=== PATIENT | male | born 1950 | race Hispanic/Latino ===

== ENCOUNTER 2019-07-20 06:56 | Day surgery (SDC) | payer OTHER ==
[~2019-07-20 06:56] MED LIST: SODIUM CHLORIDE 0.9% 1000ML 1,000 ML IV ONE
[2019-07-20 08:16] VITALS: BP 130/72
[2019-07-20] MEDS ORDERED: VITAMIN PATCH TP (08:39)
[2019-07-20] MEDS ORDERED: PROPOFOL 10 MG/ML 20ML VIAL IV ONE (11:42)
[2019-07-20 11:54] VITALS: BP 108/57
[2019-07-20 11:59] VITALS: BP 105/56
[2019-07-20 12:04] VITALS: BP 117/52
[2019-07-20 12:09] VITALS: BP 137/87
[2019-07-20 12:14] VITALS: BP 149/68
== END 2019-07-20 12:30 | disposition home or self-care (01) ==
LOC: ENDO 06:56 → DAH 06:56 → ENDO 12:30
PROVIDERS: ATTEND Student in an Organized Health Care Education/Training Program
DX: R13.10 Dysphagia, unspecified (principal); K21.9 Gastro-esophageal reflux disease without esophagitis; K63.89 Other specified diseases of intestine; G47.00 Insomnia, unspecified; E78.5 Hyperlipidemia, unspecified; I10 Essential (primary) hypertension; M19.90 Unspecified osteoarthritis, unspecified site; Z98.84 Bariatric surgery status; Z98.890 Other specified postprocedural states; Z82.5 Family history of asthma and other chronic lower respiratory diseases
CPT/HCPCS: 43249; A4215; A4221; A4222; A4223; A4606; A4620; A4663; C1725; J2704; J7030